=== PATIENT | male | born 1975 | race Caucasian/White ===

== ENCOUNTER → 2016-12-26 | Outpatient (CLI) | payer OTHER | LOC: BMCIMAGING 10:47 | PROVIDERS: ATTEND Emergency Medicine | DX: M25.561 Pain in right knee (principal) ==

== ENCOUNTER → 2017-01-12 | Outpatient (CLI) | payer OTHER | LOC: BMCIMAGING 09:09 | PROVIDERS: ATTEND Registered Nurse General Practice | DX: M25.532 Pain in left wrist (principal) ==

== ENCOUNTER 2017-07-13 12:28 | Emergency (ER) | payer OTHER ==
[2017-07-13] MEDS ORDERED: RABIES IMMUNE GLOBULIN 300 UNIT/2 ML VIAL IM ONE (13:16)
[2017-07-13] MEDS ORDERED: RABIES VACC, HUMAN DIPLOID/PF 2.5 UNIT VIAL (RABAVERT) IM ONE (13:18)
--- NOTE | 2017-07-13 13:19 | EDPHY ---
H & P Time Seen by Provider: 07/13/17 12:59 HPI/ROS: CHIEF COMPLAINT: here for rabies prophylaxis HISTORY OF PRESENT ILLNESS: 41-year-old male presents emergency department sent by his primary care doctor for rabies prophylaxis. Patient was hit in the stomach by a homeless persons dogs this morning. Unknown rabies status of dog and the dog physical therapy nurse and dog ran away. Pt's tetanus is up to date. No other complaints. Smoking Status: Former smoker Physical Exam: GEN: Awake, alert, oriented, no acute distress RESP: nl resp effort MSK: Normal appearing SKIN: 2 mm x 2 mm area of superficial abrasion to the right of umbilicus Constitutional: Initial Vital Signs Temperature (C) 36.7 C 07/13/17 12:33 Heart Rate 95 07/13/17 12:33 Respiratory Rate 18 07/13/17 12:33 Blood Pressure 126/90 H 07/13/17 12:33 O2 Sat (%) 96 07/13/17 12:33 O2 Delivery Mode Room Air Allergies/Adverse Reactions: No Known Allergies Allergy (Verified 07/13/17 12:31) Home Medications: Medication Instructions Recorded Albuterol [Ventolin Hfa Inhaler] 200 puffs IH 07/13/17 methYLPHENIDATE HCL [Ritalin 10mg 10 mg PO 07/13/17 (*)] MDM/Departure - MDM ED Course/Re-evaluation: I discussed with the patient the unlikelyness of this dog having rabies. He is insistent upon receiving the vaccines. Pt will be given ID for follow up. - Depart Disposition: Home, Routine, Self-Care Clinical Impression: Rabies, need for prophylactic vaccination against Condition: Good Instructions: Rabies (ED) Additional Instructions: You need to return for a rabies vaccine on day 3, 7 and 14. Your next vaccine needs to be on Monday 07/16. Come back to the emergency department. Your 3rd and 4th vaccines can be done at the infectious disease clinic. Call today to schedule these- July 20- vaccine July 27- 4th vaccine. Referrals: [facility] (ED,. [Edm Groups for Call Sched] - As per Instructions
[2017-07-13 14:18] VITALS: BP 117/68; PULSE 81; RESP 17; TEMP 98.8; O2SAT 95
== END 2017-07-13 14:17 | disposition home or self-care (01) ==
DX: Z23 Encounter for immunization (principal); Z87.891 Personal history of nicotine dependence; Z20.3 Contact with and (suspected) exposure to rabies

== ENCOUNTER 2017-07-16 14:45 | Emergency (ER) | payer OTHER ==
[2017-07-16] MEDS ORDERED: RABIES VACC, HUMAN DIPLOID/PF 2.5 UNIT VIAL (RABAVERT) IM ONE (14:50)
[2017-07-16 14:56] VITALS: BP 138/91; PULSE 91; RESP 16; TEMP 98.6; O2SAT 93
== END 2017-07-16 15:41 | disposition home or self-care (01) ==
DX: Z20.3 Contact with and (suspected) exposure to rabies (principal); Z23 Encounter for immunization

== ENCOUNTER → 2018-05-04 | Outpatient (CLI) | payer OTHER | LOC: FIMAGING 12:53 | PROVIDERS: ATTEND Surgery | DX: R10.32 Left lower quadrant pain (principal) ==

== ENCOUNTER → 2018-05-05 | Outpatient (CLI) | payer OTHER ==
[~2018-05-05] MED LIST: IOPAMIDOL (ISOVUE-300) 100 ML BTL ONE
== END ==
LOC: FIMAGING 07:32
PROVIDERS: ATTEND Surgery
DX: K57.30 Diverticulosis of large intestine without perforation or abscess without bleeding (principal); N42.9 Disorder of prostate, unspecified; K76.9 Liver disease, unspecified
CPT/HCPCS: Q9967